=== PATIENT | male | born 1995 | race African-American/Black ===

== ENCOUNTER 2022-03-15 14:26 | Inpatient (IN) | payer OTHER ==
[2022-03-15 14:38] VITALS: BMI 20.3
[2022-03-15] MEDS ORDERED: IBUPROFEN 600 MG TABLET (FP) PO PRN (15:34)
[2022-03-15] MEDS ORDERED: ONDANSETRON *ODT* 4 MG TABLET SL PRN (15:34)
[2022-03-15] MEDS ORDERED: LORazepam 1 MG TABLET PO PRN (15:34)
[2022-03-15] MEDS ORDERED: DICYCLOMINE HCL 10 MG CAPSULE PO PRN (15:34)
[2022-03-15] MEDS ORDERED: NICOTINE 10 MG CARTRIDGE (INHALER) IH PRN (15:34)
[2022-03-15] MEDS ORDERED: IBUPROFEN 400 MG TABLET (FP) PO PRN (15:34)
[2022-03-15] MEDS ORDERED: MAGNESIUM HYDROX 2400MG/30ML ORAL SUSPENSION 30 ML CUP PO PRN (15:34)
[2022-03-15] MEDS ORDERED: BENZOCAINE/MENTHOL (CHLORASEPTIC ) LOZENGE MM PRN (15:34)
[2022-03-15] MEDS ORDERED: METHOCARBAMOL 500 MG TABLET PO PRN (15:34)
[2022-03-15] MEDS ORDERED: LOPERAMIDE HCL 2 MG CAPSULE PO PRN (15:34)
[2022-03-15] MEDS ORDERED: BISMUTH SUBSALICYLATE 524 MG/30 ML PO PRN (15:34)
[2022-03-15] MEDS ORDERED: MAG HYDROX/AL HYDROX/SIMETH 30 ML UNIT-DOSE CUP PO PRN (15:34)
[2022-03-15] MEDS ORDERED: MAGNESIUM CITRATE 300 ML BOTTLE PO PRN (15:34)
[2022-03-15] MEDS ORDERED: ACETAMINOPHEN 325 MG TABLET (FP) PO PRN ×2 (15:34)
[2022-03-15] MEDS ORDERED: LORazepam 2 MG TABLET ONE (16:11)
[2022-03-15] MEDS: LORazepam 2 MG TABLET PO SCH ×2 (16:14→22:24)
[2022-03-15] MEDS: NICOTINE 7 MG/24 HOURS TOPICAL PATCH TD SCH (18:49)
[2022-03-15] MEDS: hydrOXYzine PAMOATE 25 MG CAPSULE (FP) PO SCH ×2 (18:51→22:23)
[2022-03-15] MEDS: PRENATAL VITAMINS W/ FOLIC ACID TABLET (FP) PO SCH (18:51)
[2022-03-15] MEDS ORDERED: MELATONIN 5 MG TABLETS PO SCH (22:00)
[2022-03-15] MEDS: THIAMINE HCL 100 MG TABLET (FP) PO SCH (22:23)
[2022-03-16] MEDS: hydrOXYzine PAMOATE 25 MG CAPSULE (FP) PO SCH ×5 (06:20→23:05)
[2022-03-16] MEDS: LORazepam 2 MG TABLET PO SCH ×4 (06:20→23:05)
[2022-03-16 09:37] LABS: HEMATOCRIT 36.6 % (35.4-49); HEMOGLOBIN 12.8 GM/dL (11.7-16.9); MCH 33.3 pg (25.7-33.7); MEAN CELL VOLUME 95.1 fl (80-96); MEAN PLT VOLUME 7.3 fl (7.5-11.1); PLATELET COUNT 193 10^3/uL (134-434); RBC 3.85 M/mm3 (4.00-5.60); RDW 12.7 % (11.9-15.9); WHITE BLOOD COUNT 3.4 K/mm3 (4.0-10.0)
[2022-03-16 09:43] LABS: BLOOD UREA NITROGEN 5.7 mg/dL (7-18)
[2022-03-16 09:48] LABS: CALCIUM 8.7 mg/dL (8.5-10.1)
[2022-03-16 09:49] LABS: ALBUMIN 3.2 g/dl (3.4-5.0)
[2022-03-16 09:52] LABS: CREATININE 0.9 mg/dL (0.55-1.3)
[2022-03-16 09:54] LABS: TOT PROT 6.1 g/dl (6.4-8.2)
[2022-03-16 09:55] LABS: BILIRUBIN,TOTAL 1.2 mg/dL (0.2-1)
[2022-03-16] MEDS: PRENATAL VITAMINS W/ FOLIC ACID TABLET (FP) PO SCH (10:55)
[2022-03-16] MEDS: NICOTINE 7 MG/24 HOURS TOPICAL PATCH TD SCH (10:55)
[2022-03-16] MEDS: LACTULOSE 20 GM/30 ML UDC (FOR ORAL USE ONLY) PO SCH ×3 (14:13→23:05)
[2022-03-16] MEDS: THIAMINE HCL 100 MG TABLET (FP) PO SCH (23:00)
[2022-03-16] MEDS: MELATONIN 5 MG TABLETS PO SCH (23:05)
[2022-03-17] MEDS: hydrOXYzine PAMOATE 25 MG CAPSULE (FP) PO SCH ×5 (06:47→22:30)
[2022-03-17] MEDS: LORazepam 1 MG TABLET PO SCH ×4 (06:47→22:23)
[2022-03-17] MEDS: PRENATAL VITAMINS W/ FOLIC ACID TABLET (FP) PO SCH (11:01)
[2022-03-17] MEDS: NICOTINE 7 MG/24 HOURS TOPICAL PATCH TD SCH (11:03)
[2022-03-17] MEDS: LACTULOSE 20 GM/30 ML UDC (FOR ORAL USE ONLY) PO SCH ×4 (11:04→22:24)
[2022-03-17] MEDS: MELATONIN 5 MG TABLETS PO SCH (22:23)
[2022-03-17] MEDS: THIAMINE HCL 100 MG TABLET (FP) PO SCH (22:23)
[2022-03-18] MEDS ORDERED: LORazepam 0.5 MG TABLET PO PRN
[2022-03-18] MEDS: hydrOXYzine PAMOATE 25 MG CAPSULE (FP) PO SCH ×5 (07:11→21:47)
[2022-03-18] MEDS: LORazepam 0.5 MG TABLET PO SCH ×4 (07:11→22:17)
[2022-03-18] MEDS: LACTULOSE 20 GM/30 ML UDC (FOR ORAL USE ONLY) PO SCH ×4 (10:38→21:47)
[2022-03-18] MEDS: NICOTINE 7 MG/24 HOURS TOPICAL PATCH TD SCH (10:38)
[2022-03-18] MEDS: PRENATAL VITAMINS W/ FOLIC ACID TABLET (FP) PO SCH (10:38)
[2022-03-18] MEDS: MELATONIN 5 MG TABLETS PO SCH (21:47)
[2022-03-18] MEDS: THIAMINE HCL 100 MG TABLET (FP) PO SCH (22:18)
[2022-03-19] MEDS ORDERED: LORazepam 0.5 MG TABLET PO ONE (05:00)
[2022-03-19] MEDS: hydrOXYzine PAMOATE 25 MG CAPSULE (FP) PO SCH ×3 (05:52→13:27)
[2022-03-19] MEDS: PRENATAL VITAMINS W/ FOLIC ACID TABLET (FP) PO SCH (10:44)
[2022-03-19] MEDS: NICOTINE 7 MG/24 HOURS TOPICAL PATCH TD SCH (10:44)
[2022-03-19] MEDS: LACTULOSE 20 GM/30 ML UDC (FOR ORAL USE ONLY) PO SCH ×2 (10:44→13:27)
[2022-03-19 13:19] VITALS: BP 134/87; PULSE 100; RESP 18; TEMP 97.1
== END 2022-03-19 15:24 | disposition home or self-care (01) | DRG 775 ==
LOC: YASAS 14:26 → Y3N 18:01
PROVIDERS: ADMIT Allergy & Immunology; ATTEND Surgery
PROC: HZ2ZZZZ Detoxification Services for Substance Abuse Treatment (ICD-10-PCS; principal; 2022-03-15)
DX: F10.230 Alcohol dependence with withdrawal, uncomplicated (principal); F12.20 Cannabis dependence, uncomplicated; F17.210 Nicotine dependence, cigarettes, uncomplicated; F10.282 Alcohol dependence with alcohol-induced sleep disorder; U07.1 COVID-19; R79.89 Other specified abnormal findings of blood chemistry
CPT/HCPCS: 36415; 80053; 82140; 85027; 86780; 87811; 93005; 93010; C9803-CS; U0003; U0005